=== PATIENT | male | born 1950 ===

== ENCOUNTER 2017-02-20 05:04 | Emergency (ER) | payer MEDICARE, BC ==
[~2017-02-20] VITALS: Ht 175.3 cm; Wt 99.2 kg
[2017-02-20 05:18] VITALS: Ht 175.3 cm; Wt 99.2 kg
[2017-02-20 05:30] VITALS: TEMP 97.3
[2017-02-20] MEDS ORDERED: TAMS-14 PO (05:46)
[2017-02-20] MEDS ORDERED: CIPR500T4 PO (05:46)
--- NOTE | 2017-02-20 05:53 | ERD ---
ER Documentation Chief Complaint Chief Complaint unable to urinate since 2329. hx of bph HPI 58-year-old male here with urinary retention. Says he has been able to urinate for the past 12 hours. No nausea no vomiting no chills. No other current complaints. ROS All systems reviewed and are negative except as per history of present illness. Medications Home Meds Active Scripts Tamsulosin Hcl* (Flomax*) 0.4 Mg Cap.er.24h, 0.4 MG PO BID, #14 CAP Prov:VOLODYMYR LAND Kip 02/20/17 Ciprofloxacin Hcl* (Ciprofloxacin Hcl*) 500 Mg Tablet, 500 MG PO BID for 7 Days , TAB Prov:VOLODYMYR LAND Radha. 02/20/17 Allergies Allergies: Coded Allergies: Penicillins (Verified Allergy, Unknown, 02/20/17) Physical Exam Vitals Vital Signs Date Time Temp Pulse Resp B/P Pulse Ox O2 Delivery O2 Flow Rate FiO2 02/20/17 05:18 97.3 115 20 135/94 96 Physical Exam Const: [] Head: Atraumatic Eyes: Normal Conjunctiva ENT: Normal External Ears, Nose and Mouth. Neck: Full range of motion..~ No meningismus. Resp: Clear to auscultation bilaterally Cardio: Regular rate and rhythm, no murmurs Abd: Soft, non tender, non distended. Normal bowel sounds Skin: No petechiae or rashes Back: No midline or flank tenderness Ext: No cyanosis, or edema Neur: Awake and alert Psych: Normal Mood and Affect Procedures/MDM Medical decision-making: This very pleasant patient with urinary retention. Patient will be discharged home with Panda catheter and leg bag. Started on Cipro and Flomax. Follow-up with urology. Departure Diagnosis: Primary Impression: Retention of urine Condition: Stable Patient Instructions: Urinary Retention, Male VOLODYMYR LAND Kip Feb 20, 2017 05:53
[2017-02-20 06:38] VITALS: BP 100/79; PULSE 88; RESP 20
== END 2017-02-20 07:09 | disposition home or self-care (01) ==
LOC: E/R 05:04
DX: R33.9 Retention of urine, unspecified (principal); R40.2142 Coma scale, eyes open, spontaneous, at arrival to emergency department; R40.2252 Coma scale, best verbal response, oriented, at arrival to emergency department; R40.2362 Coma scale, best motor response, obeys commands, at arrival to emergency department